=== PATIENT | male | born 1950 | race Caucasian/White ===

== ENCOUNTER 2016-04-27 19:04 | Emergency (ER) | payer OTHER ==
[~2016-04-27] VITALS: Ht 185.4 cm; Wt 68.0 kg
[2016-04-27 19:22] VITALS: BP 151/82
[2016-04-27] MEDS ORDERED: ACETAMINOPHEN/CODEINE#3 (300/30mg) TAB PO ONE (20:45)
== END 2016-04-27 20:50 | disposition home or self-care (01) ==
LOC: ER 19:12
DX: C79.11 Secondary malignant neoplasm of bladder (principal); C80.1 Malignant (primary) neoplasm, unspecified; F12.10 Cannabis abuse, uncomplicated; R10.9 Unspecified abdominal pain; Z76.0 Encounter for issue of repeat prescription; Z88.8 Allergy status to other drugs, medicaments and biological substances